=== PATIENT | male | born 1975 | race Native Hawaiian/Other Pacific Islander ===

== ENCOUNTER 2016-09-02 13:05 | Observation (INO) | payer OTHER ==
[2016-09-02] VITALS (8 sets, daily range): BP systolic 129–248; BP diastolic 76–120; TEMP 97.6–99.2; Ht 182.9 cm; Wt 92.1 kg
[~2016-09-02] VITALS: Ht 182.9 cm; Wt 92.1 kg
[~2016-09-02 13:05] MED LIST: LANTUS100 MG/ML SC; METF500T PO; NOVOLOG SC
[2016-09-02 14:20] LABS: PARTIAL THROMBOPLASTIN TIME 23.6 SECONDS (24.5-33.6); PLATELET COUNT 201 K/uL (142-355)
[2016-09-02 14:26] LABS: POTASSIUM 3.9 mmol/L (3.6-5.2); SODIUM 140 mmol/L (136-145)
[2016-09-02] MEDS ORDERED: LANTUS100 MG/ML SC (17:30)
[2016-09-02] MEDS ORDERED: LISI20TA11 PO (17:31)
[2016-09-02] MEDS ORDERED: ASA LOW STR81 MG PO (17:31)
[2016-09-03] VITALS: BP 166/94; TEMP 98.2
[2016-09-03 04:00] VITALS: BP 111/57; TEMP 97.9
[2016-09-03 06:35] LABS: POTASSIUM 3.7 mmol/L (3.6-5.2)
[2016-09-03 06:40] LABS: PLATELET COUNT 183 K/uL (142-355)
[2016-09-03 08:19] VITALS: BP 167/95; TEMP 98
--- NOTE | 2016-09-03 13:51 | NUR ---
IV SITE D/C'D WITH TIP INTACT AND SITE CARE DONE. D/C INSTRUCTIONS GIVEN TO PT AND HE VERBALIZES UNDERSTANDING. PT OUT VIA HIS OWN PERSONAL W/C WITH NAD AND AT .
== END 2016-09-03 14:06 | disposition home or self-care (01) ==
LOC: ED 13:05 → MED/SURG 15:49
PROVIDERS: Student in an Organized Health Care Education/Training Program; ADMIT Specialist
DX: R07.89 Other chest pain (principal); Z89.512 Acquired absence of left leg below knee; I10 Essential (primary) hypertension; E11.9 Type 2 diabetes mellitus without complications
CPT/HCPCS: 36415; 80048; 80053; 82550; 83880; 84484; 85027; 85379; 85610; 85730; 86039; 86200; 86318; 86431; 93005; 96372; 99220; 99283; G0378; J1650

== ENCOUNTER 2016-12-10 23:58 | Outpatient (CLI) | payer OTHER ==
[~2016-12-10 23:58] MED LIST changes: +ASA LOW STR81 MG PO; +LISI20TA11 PO
[2016-12-11] MEDS ORDERED: LISI20TA11 PO (02:35)
[2016-12-11] MEDS ORDERED: HUMALOG KWI100 MG/ML SC (02:35)
== END 2016-12-11 00:13 | disposition short-term general hospital (02) ==
LOC: AMB 23:58
DX: I10 Essential (primary) hypertension (principal); R07.89 Other chest pain
CPT/HCPCS: A0425; A0427

== ENCOUNTER 2016-12-11 00:16 | Observation (INO) | payer OTHER ==
[~2016-12-11] VITALS: Ht 182.9 cm; Wt 97.1 kg
[2016-12-11 00:29] VITALS: BP 204/125; TEMP 98.2
[2016-12-11 01:14] LABS: PLATELET COUNT 307 K/uL (142-355)
[2016-12-11 01:24] LABS: POTASSIUM 4.3 mmol/L (3.6-5.2)
[2016-12-11 01:45] LABS: PARTIAL THROMBOPLASTIN TIME 24.2 SECONDS (24.5-33.6)
[2016-12-11] MEDS ORDERED: HUMALOG KWI100 MG/ML SC (02:35)
[2016-12-11] MEDS ORDERED: LISI20TA11 PO (02:35)
[2016-12-11 02:58] VITALS: BP 194/90; TEMP 98.2
[2016-12-11 04:19] VITALS: BP 148/94; TEMP 98.1; Ht 182.9 cm; Wt 97.1 kg
[2016-12-11 08:00] VITALS: BP 147/73; TEMP 98.3
[2016-12-11 12:00] VITALS: BP 162/91; TEMP 98
== END 2016-12-11 16:33 | disposition home or self-care (01) ==
LOC: ED 00:16 → MED/SURG 02:26
PROVIDERS: ADMIT Specialist
DX: R07.89 Other chest pain (principal); E11.9 Type 2 diabetes mellitus without complications; I10 Essential (primary) hypertension
CPT/HCPCS: 80048; 82550; 83036; 83735; 84484; 85027; 85379; 85610; 85651; 85730; 93005; 93306; 99220; G0378; J1650; J1885

== ENCOUNTER 2017-04-18 10:46 | Emergency (ER) | payer OTHER ==
[~2017-04-18] VITALS: Ht 182.9 cm; Wt 95.3 kg
[~2017-04-18 10:46] MED LIST changes: +HUMALOG KWI100 MG/ML SC
[2017-04-18 10:56] VITALS: TEMP 98
[2017-04-18 12:10] VITALS: BP 164/101
== END 2017-04-18 12:10 | disposition home or self-care (01) ==
LOC: ED 10:46
DX: S70.01XA Contusion of right hip, initial encounter (principal); S40.011A Contusion of right shoulder, initial encounter; W10.9XXA Fall (on) (from) unspecified stairs and steps, initial encounter
CPT/HCPCS: 96372; 99283; J1885

== ENCOUNTER 2017-04-26 02:39 | Observation (INO) | payer OTHER ==
[~2017-04-26] VITALS: Ht 182.9 cm; Wt 95.3 kg
[2017-04-26] VITALS (17 sets, daily range): BP systolic 103–190; BP diastolic 64–97; TEMP 98.3–99; Ht 182.9 cm; Wt 95.3 kg
[2017-04-26] MEDS ORDERED: LISI20TA11 PO (04:51)
[2017-04-26] MEDS ORDERED: METOPROLOL25 M1 PO (04:51)
[2017-04-27] VITALS (10 sets, daily range): BP systolic 113–177; BP diastolic 68–90; TEMP 98.6–99.1
[2017-04-27 08:12] LABS: PLATELET COUNT 197 K/uL (142-355)
[2017-04-27 08:22] LABS: POTASSIUM 3.7 mmol/L (3.6-5.2)
== END 2017-04-27 15:45 | disposition home or self-care (01) ==
LOC: EDP 02:39 → ICU 04:30
PROVIDERS: Emergency Medicine
DX: E11.65 Type 2 diabetes mellitus with hyperglycemia (principal); E87.1 Hypo-osmolality and hyponatremia; E86.0 Dehydration
CPT/HCPCS: 36415; 80053; 81000; 81002; 82550; 82553; 82947; 82962; 83605; 83690; 83735; 84100; 84484; 85027; 85610; 85730; 93005; 94760; 96361; 96365; 96372; 96375; 99220; 99284; G0378; J1650; J1815; J1885; J2405; J3490

== ENCOUNTER 2017-04-26 03:29 | Outpatient (CLI) | payer OTHER ==
[2017-04-26] MEDS ORDERED: METOPROLOL25 M1 PO (04:51)
[2017-04-26] MEDS ORDERED: LISI20TA11 PO (04:51)
== END 2017-04-26 03:31 | disposition short-term general hospital (02) ==
LOC: AMB 03:29
DX: R07.89 Other chest pain (principal); E11.65 Type 2 diabetes mellitus with hyperglycemia; R53.1 Weakness
CPT/HCPCS: A0425; A0427

== ENCOUNTER 2017-06-10 14:24 | Observation (INO) | payer OTHER ==
[2017-06-10] VITALS (10 sets, daily range): BP systolic 94–167; BP diastolic 52–94; TEMP 98.3–98.7
[~2017-06-10] VITALS: Ht 182.9 cm; Wt 96.8 kg
[~2017-06-10 14:24] MED LIST changes: +METOPROLOL25 M1 PO
[2017-06-10] MEDS ORDERED: GABA400C2 PO (14:47)
[2017-06-10] MEDS ORDERED: ZESTRIL40 MG OR (14:47)
[2017-06-10] MEDS ORDERED: LANTUS100 MG/ML SC (14:48)
[2017-06-10] MEDS ORDERED: HUMALOG KWI100 MG/ML SC (14:51)
[2017-06-10 15:18] LABS: PLATELET COUNT 241 K/uL (142-355)
[2017-06-10 15:29] LABS: POTASSIUM 3.9 mmol/L (3.6-5.2)
[2017-06-11] VITALS (7 sets, daily range): BP systolic 141–189; BP diastolic 87–109; TEMP 98.1–99.6; Ht 182.9 cm; Wt 96.8 kg
[2017-06-11 04:49] LABS: PLATELET COUNT 197 K/uL (142-355)
[2017-06-11] MEDS ORDERED: ZESTRIL40 MG PO (10:17)
[2017-06-12] VITALS: BP 141/76; TEMP 99.1
[2017-06-12 04:00] VITALS: BP 158/87; TEMP 98
[2017-06-12 08:00] VITALS: BP 123/80; TEMP 97.8
[2017-06-12 10:54] LABS: PLATELET COUNT 217 K/uL (142-355)
[2017-06-12 11:34] LABS: POTASSIUM 4.7 mmol/L (3.6-5.2)
[2017-06-12 12:14] VITALS: BP 154/86; TEMP 98.7
== END 2017-06-12 13:30 | disposition home or self-care (01) ==
LOC: ED 14:24 → MED/SURG 17:55
PROVIDERS: ADMIT Emergency Medicine
DX: R53.1 Weakness (principal); E87.1 Hypo-osmolality and hyponatremia; D64.89 Other specified anemias; E11.42 Type 2 diabetes mellitus with diabetic polyneuropathy; R11.2 Nausea with vomiting, unspecified; A08.8 Other specified intestinal infections; I12.9 Hypertensive chronic kidney disease with stage 1 through stage 4 chronic kidney disease, or unspecified chronic kidney disease; E11.22 Type 2 diabetes mellitus with diabetic chronic kidney disease; N18.3 Chronic kidney disease, stage 3 (moderate); E87.8 Other disorders of electrolyte and fluid balance, not elsewhere classified
CPT/HCPCS: 36415; 80053; 81000; 82175; 82550; 82607; 82948; 83036; 83519; 83605; 83880; 84207; 84425; 84436; 84439; 84443; 84481; 84484; 85027; 85379; 85651; 86039; 86255; 86256; 86592; 86644; 86663; 86665; 86695; 86696; 93005; 96360; 96372; 99220; 99284; G0378; J1650; J1815

== ENCOUNTER 2017-08-16 23:15 | Inpatient (IN) | payer OTHER ==
[~2017-08-16] VITALS: Ht 182.9 cm; Wt 95.8 kg
[~2017-08-16 23:15] MED LIST changes: +GABA400C2 PO; +ZESTRIL40 MG OR; +ZESTRIL40 MG PO
[2017-08-17] VITALS (15 sets, daily range): BP systolic 119–216; BP diastolic 73–120; TEMP 97.2–98.6; Ht 182.9 cm; Wt 95.8 kg
[2017-08-17 00:08] LABS: PLATELET COUNT 221 K/uL (142-355)
[2017-08-17 00:16] LABS: POTASSIUM 4.8 mmol/L (3.6-5.2)
[2017-08-17 08:30] LABS: POTASSIUM 3.8 mmol/L (3.6-5.2)
[2017-08-18] VITALS (7 sets, daily range): BP systolic 143–212; BP diastolic 85–116; TEMP 97.8–98.6
[2017-08-18 05:42] LABS: PLATELET COUNT 216 K/uL (142-355)
[2017-08-18 06:06] LABS: POTASSIUM 4.2 mmol/L (3.6-5.2)
[2017-08-19 04:00] VITALS: BP 188/107; TEMP 98.1
[2017-08-19 06:04] LABS: PLATELET COUNT 189 K/uL (142-355)
[2017-08-19 06:50] LABS: POTASSIUM 4.5 mmol/L (3.6-5.2)
[2017-08-19 08:00] VITALS: BP 188/102; TEMP 98.7
[2017-08-19] MEDS ORDERED: LISI20TA11 PO (09:22)
[2017-08-19] MEDS ORDERED: INSUINJ20 SC (09:22)
[2017-08-19] MEDS ORDERED: ENOX100I SC (09:24)
[2017-08-19] MEDS ORDERED: HYDROCHLOROT12.5 M1 PO (09:35)
== END 2017-08-19 11:35 | disposition home or self-care (01) | DRG 638 ==
LOC: ED 23:15 → ICU 08-17 02:10 → MED/SURG 08-17 10:20
PROVIDERS: ADMIT Emergency Medicine
DX: E11.65 Type 2 diabetes mellitus with hyperglycemia (principal); E87.1 Hypo-osmolality and hyponatremia; Z79.4 Long term (current) use of insulin; Z91.19 Patient's noncompliance with other medical treatment and regimen; Z71.3 Dietary counseling and surveillance; M62.81 Muscle weakness (generalized); R07.89 Other chest pain; Z89.9 Acquired absence of limb, unspecified; N18.3 Chronic kidney disease, stage 3 (moderate); E87.8 Other disorders of electrolyte and fluid balance, not elsewhere classified; E83.51 Hypocalcemia
CPT/HCPCS: 36415; 36600; 80048; 80053; 81002; 82550; 82553; 82805; 82947; 82962; 83036; 84484; 85027; 85379; 85610; 85730; 93005; 94760; 96361; 96365; 96372; 99285; A9540; A9567; J1650; J1815

== ENCOUNTER 2017-11-25 21:07 | Inpatient (IN) | payer OTHER ==
[~2017-11-25] VITALS: Ht 182.9 cm; Wt 108.0 kg
[2017-11-25 21:07] VITALS: BP 224/117; TEMP 98.4
[~2017-11-25 21:07] MED LIST changes: +ENOX100I SC; +HYDROCHLOROT12.5 M1 PO; +INSUINJ20 SC
[2017-11-25 21:49] LABS: PLATELET COUNT 236 K/uL (142-355)
[2017-11-25 22:19] LABS: POTASSIUM 5.2 mmol/L (3.6-5.2)
[2017-11-25 22:30] VITALS: BP 186/105; TEMP 98.5
[2017-11-25 23:51] VITALS: BP 173/89; TEMP 98.5
[2017-11-26] VITALS (7 sets, daily range): BP systolic 110–199; BP diastolic 58–110; TEMP 97.7–98.3; Ht 182.9 cm; Wt 108.0 kg
[2017-11-27 03:58] VITALS: BP 154/81; TEMP 98.1
[2017-11-27 07:32] LABS: PLATELET COUNT 194 K/uL (142-355)
[2017-11-27 08:05] VITALS: BP 158/100; TEMP 98
[2017-11-27 08:13] LABS: POTASSIUM 5.5 mmol/L (3.6-5.2)
[2017-11-27 12:06] VITALS: BP 192/100; TEMP 98.2
[2017-11-27 16:04] VITALS: BP 135/71; TEMP 98.1
[2017-11-27 20:05] VITALS: BP 136/96; TEMP 98.6
[2017-11-28 00:05] VITALS: BP 152/88; TEMP 98.2
[2017-11-28 04:20] VITALS: BP 147/88; TEMP 97.6
[2017-11-28 05:17] LABS: PLATELET COUNT 207 K/uL (142-355)
[2017-11-28 05:48] LABS: POTASSIUM 5.5 mmol/L (3.6-5.2)
[2017-11-28 08:00] VITALS: BP 162/91; TEMP 98.1
[2017-11-28 12:00] VITALS: BP 171/98; TEMP 98.2
[2017-11-28 16:07] VITALS: BP 171/93; TEMP 98.5
[2017-11-28 20:19] VITALS: BP 195/99; TEMP 98.6
[2017-11-29 00:09] VITALS: BP 185/96; TEMP 98.2
[2017-11-29 04:06] VITALS: BP 168/89; TEMP 98.2
[2017-11-29 04:46] LABS: PLATELET COUNT 203 K/uL (142-355)
[2017-11-29 08:00] VITALS: BP 159/92; TEMP 97.8
[2017-11-29 12:00] VITALS: BP 146/83; TEMP 97.7
[2017-11-29 16:00] VITALS: BP 172/99; TEMP 97.8
[2017-11-29 20:00] VITALS: BP 186/96; TEMP 97.7
[2017-11-30] VITALS: BP 149/81; TEMP 97.8
[2017-11-30 03:52] VITALS: BP 160/77; TEMP 97.7
[2017-11-30 05:28] LABS: PLATELET COUNT 188 K/uL (142-355)
[2017-11-30 05:42] LABS: POTASSIUM 5.3 mmol/L (3.6-5.2)
[2017-11-30 08:00] VITALS: BP 156/85; TEMP 98.2
[2017-11-30] MEDS ORDERED: CLON0.1T16 PO (09:14)
[2017-11-30] MEDS ORDERED: ELIQUIS5 MG PO (09:15)
== END 2017-11-30 10:06 | disposition home or self-care (01) | DRG 313 ==
LOC: ED 21:07 → MED/SURG 23:00
PROVIDERS: Emergency Medicine
PROC: 30233N1 Transfusion of Nonautologous Red Blood Cells into Peripheral Vein, Percutaneous Approach (ICD-10-PCS; principal; 2017-11-28)
DX: R07.89 Other chest pain (principal); N18.4 Chronic kidney disease, stage 4 (severe); E87.5 Hyperkalemia; D64.89 Other specified anemias; E11.42 Type 2 diabetes mellitus with diabetic polyneuropathy; I12.9 Hypertensive chronic kidney disease with stage 1 through stage 4 chronic kidney disease, or unspecified chronic kidney disease; E11.22 Type 2 diabetes mellitus with diabetic chronic kidney disease
CPT/HCPCS: 36415; 80053; 82550; 82553; 82948; 83036; 83880; 84132; 84484; 85027; 85379; 86850; 86900; 86901; 86922; 93005; 94640; 94664; 94760; 96372; 99284; J0360; J1650; J1815; J1940; J7060; P9016

== ENCOUNTER 2018-01-03 22:35 | Emergency (ER) | payer OTHER ==
[~2018-01-03] VITALS: Ht 182.9 cm; Wt 108.0 kg
[~2018-01-03 22:35] MED LIST changes: +CLON0.1T16 PO; +ELIQUIS5 MG PO
[2018-01-03 23:50] LABS: PLATELET COUNT 194 K/uL (142-355)
[2018-01-04 00:10] LABS: POTASSIUM 5.5 mmol/L (3.6-5.2)
[2018-01-04 00:29] VITALS: BP 202/112; TEMP 98.7
== END 2018-01-04 00:31 | disposition home or self-care (01) ==
LOC: ED 22:35
PROVIDERS: Family Medicine
PROC: 0H94XZZ Drainage of Neck Skin, External Approach (ICD-10-PCS; principal; 2018-01-03)
DX: S10.96XA Insect bite of unspecified part of neck, initial encounter (principal); S10.93XA Contusion of unspecified part of neck, initial encounter; W57.XXXA Bitten or stung by nonvenomous insect and other nonvenomous arthropods, initial encounter
CPT/HCPCS: 36415; 80053; 85027; 99283

== ENCOUNTER 2018-01-17 19:11 | Emergency (ER) | payer OTHER ==
[~2018-01-17] VITALS: Ht 182.9 cm; Wt 108.0 kg
[2018-01-17 20:08] LABS: PLATELET COUNT 218 K/uL (142-355)
[2018-01-17 20:32] LABS: POTASSIUM 6.8 mmol/L (3.6-5.2)
[2018-01-17 22:29] VITALS: TEMP 98.2
[2018-01-17 23:27] VITALS: BP 145/94
== END 2018-01-17 23:33 | disposition home or self-care (01) ==
LOC: ED 19:11
PROVIDERS: Internal Medicine
DX: R11.2 Nausea with vomiting, unspecified (principal); R19.7 Diarrhea, unspecified; R51 Headache; R00.0 Tachycardia, unspecified
CPT/HCPCS: 36415; 80053; 81000; 83735; 85027; 87502; 87651; 93005; 96361; 96365; 96372; 96374; 96375; 96376; 99285; J0360; J0610; J1815; J2270; J2405; J7060

== ENCOUNTER 2019-01-27 13:36 | Emergency (ER) | payer OTHER ==
[~2019-01-27] VITALS: Ht 182.9 cm; Wt 81.6 kg
[2019-01-27 13:43] VITALS: BP 186/103; TEMP 98.6
== END 2019-01-27 15:23 | disposition home or self-care (01) ==
LOC: ED 13:36
DX: S93.491A Sprain of other ligament of right ankle, initial encounter (principal); X58.XXXA Exposure to other specified factors, initial encounter; Y92.89 Other specified places as the place of occurrence of the external cause
CPT/HCPCS: 99283

== ENCOUNTER 2019-03-29 14:37 | Outpatient (CLI) | payer OTHER | END 2019-03-29 20:12 | disposition home or self-care (01) | LOC: LAB 14:37 | DX: D64.89 Other specified anemias (principal) | CPT/HCPCS: 85018 ==

== ENCOUNTER 2019-04-06 14:16 | Outpatient (CLI) | payer OTHER | END 2019-04-06 21:18 | disposition home or self-care (01) | LOC: LAB 14:16 | DX: D64.89 Other specified anemias (principal) | CPT/HCPCS: 85014; 85018 ==

== ENCOUNTER 2019-04-16 21:51 | Outpatient (CLI) | payer OTHER | END 2019-04-16 21:57 | disposition short-term general hospital (02) | LOC: AMB 21:51 | DX: I95.9 Hypotension, unspecified (principal) | CPT/HCPCS: A0425; A0429 ==

== ENCOUNTER 2019-04-16 21:57 | Emergency (ER) | payer OTHER ==
[~2019-04-16] VITALS: Ht 182.9 cm; Wt 80.7 kg
[2019-04-16 22:57] LABS: PLATELET COUNT 412 K/uL (142-355)
[2019-04-16 23:05] LABS: POTASSIUM 4.4 mmol/L (3.6-5.2)
[2019-04-16 23:31] VITALS: BP 132/62; TEMP 100
== END 2019-04-16 23:50 | disposition home or self-care (01) ==
LOC: ED 21:57
PROVIDERS: Emergency Medicine
DX: F43.29 Adjustment disorder with other symptoms (principal)
CPT/HCPCS: 80053; 85027; 93005; 99283

== ENCOUNTER 2019-04-28 18:51 | Emergency (ER) | payer OTHER ==
[~2019-04-28] VITALS: Ht 182.9 cm; Wt 80.7 kg
[2019-04-28 18:51] VITALS: BP 191/97; TEMP 98.1
[2019-04-28 19:49] LABS: PLATELET COUNT 469 K/uL (142-355)
[2019-04-28 20:01] LABS: POTASSIUM 5.4 mmol/L (3.6-5.2)
[2019-04-28 21:08] LABS: PARTIAL THROMBOPLASTIN TIME 23.4 SECONDS (24.5-33.6)
== END 2019-04-28 20:34 | disposition home or self-care (01) ==
LOC: ED 18:51
PROVIDERS: Hospitalist
DX: N18.6 End stage renal disease (principal); Z99.2 Dependence on renal dialysis; I50.9 Heart failure, unspecified; J40 Bronchitis, not specified as acute or chronic; R00.0 Tachycardia, unspecified
CPT/HCPCS: 80053; 82550; 83880; 84484; 85027; 85610; 85730; 87040; 87502; 93005; 94664; 99283

== ENCOUNTER 2019-05-04 15:00 | Outpatient (CLI) | payer OTHER | END 2019-05-04 19:23 | disposition home or self-care (01) | LOC: LAB 15:00 | DX: D64.89 Other specified anemias (principal) | CPT/HCPCS: 85018 ==